=== PATIENT | female | born 1970 | race African-American/Black ===

== ENCOUNTER 2017-07-05 20:18 | Emergency (ER) | payer MEDICAID ==
[~2017-07-05] VITALS: Ht 175.3 cm; Wt 111.1 kg
[~2017-07-05 20:18] MED LIST: LACTIN PO; LEVO500T20 PO
[2017-07-05 20:20] VITALS: BP_SYST 124
[2017-07-05 21:25] VITALS: BP_SYST 149
== END 2017-07-05 21:25 | disposition home or self-care (01) ==
LOC: SED 20:18
DX: I83.91 Asymptomatic varicose veins of right lower extremity (principal)
CPT/HCPCS: 99283

== ENCOUNTER → 2022-06-08 | Emergency (ER) | payer OTHER, MEDICAID ==
[~2022-06-08] VITALS: Ht 175.3 cm; Wt 90.7 kg
[~2022-06-08] MED LIST changes: +BACITRACIN 1 GM OINT TP ONE; +CLIN-22 PO; -LEVO500T20 PO; +LOSA100T3 PO; +NEU400 PO
[2022-06-08 14:18] VITALS: BP_SYST 129
--- NOTE | 2022-06-08 14:22 | NUR ---
Triaged pt and placed in waiting room until bed becomes available. Pt c/o right lower leg pain 10/10, swelling, inflammation, redness, and skin tear that started a couple days ago. Pt also c/o abnormal lab values. Pt coming from home via wheelchair accompanied by daughter. No chest pain and no sob. Denies n/v. NKA. Rae HTN and Neuropathy. VSS. Pt is A&Ox4.
[2022-06-08 16:08] LABS: WHITE BLOOD COUNT (AUTO) 4.8 K/uL (4.8-10.8)
--- NOTE | 2022-06-08 16:16 | NUR ---
Patient to ER bed 4 to gown for evaluation. Side rails up.
--- NOTE | 2022-06-08 16:20 | NUR ---
ER at bedside examining patient.
[2022-06-08 16:23] LABS: BASOPHILS % (AUTO) 0.7 % (0.0-2.0); EOSINOPHILS # (AUTO) 0.1 K/uL (0.0-0.4); EOSINOPHILS % (AUTO) 2.7 % (0.0-4.0); HEMATOCRIT 23.3 % (36-48); HEMOGLOBIN 7.5 g/dL (12.0-16.0); LYMPHOCYTES # (AUTO) 0.9 K/uL (1.0-5.5); LYMPHOCYTES % (AUTO) 19.2 % (20.5-51.5); MEAN CORPUSCULAR HEMOGLOBIN 28 pg (27-31); MEAN CORPUSCULAR HGB CONC 32 % (32-36); MEAN CORPUSCULAR VOLUME 88 fL (79.0-98.0); MONOCYTES # (AUTO) 0.3 K/uL (0.0-1.0); MONOCYTES % (AUTO) 6.3 % (1.7-9.3); NEUTROPHILS # (AUTO) 3.4 K/uL (1.8-7.7); NEUTROPHILS % (AUTO) 71.1 % (40.0-70.0); PLATELET COUNT (AUTO) 350 K/uL (130-430); RED BLOOD CELL COUNT(AUTO) 2.66 MIL/uL (4.2-6.2); RED CELL DISTRIBUTION WIDTH 16.5 % (9.0-15.0)
[2022-06-08 16:27] LABS: CALCIUM 7.9 mg/dL (8.4-11.0); CREATININE 1.67 mg/dL (0.55-1.30); POTASSIUM 3.6 mmol/L (3.5-5.1)
--- NOTE | 2022-06-08 16:28 | NUR ---
# 20 gauge angiocath placed to left AC. Use of asceptic technique. Opsite placed over site. Blood return noted. Flushed with 10 cc of normal saline. No evidence of infiltration noted. Patient tolerated well.
[2022-06-08 16:32] LABS: ALBUMIN 2.5 g/dL (3.4-4.8); C-REACTIVE PROTEIN QUANT 2.3 mg/dL (0-0.5); TOTAL BILIRUBIN 0.2 mg/dL (0.0-1.0)
--- NOTE | 2022-06-08 17:51 | NUR ---
Cleansed wound. Xeroform placed, acrilex placed, and carmella bandage. Pt has no c/o.
[2022-06-08 17:53] VITALS: BP_SYST 138
--- NOTE | 2022-06-08 19:25 | NUR ---
Report given to Tuyet CHARLES
== END | disposition home or self-care (01) ==
LOC: SED 14:06
DX: M79.661 Pain in right lower leg (principal); L97.919 Non-pressure chronic ulcer of unspecified part of right lower leg with unspecified severity; Z79.899 Other long term (current) drug therapy
CPT/HCPCS: 36415; 73590-TC; 80053; 83605; 85025; 86140; 99284